=== PATIENT | male | born 1940 | race Caucasian/White ===

== ENCOUNTER 2020-05-22 15:28 | Observation (INO) | payer MEDICARE, OTHER ==
[2020-05-22] MEDS ORDERED: Aspirin Chewable 81 MG TAB ONE (15:42)
[2020-05-22 16:06] LABS: #Eosinphils 0.1 thou/uL (0.0-0.7); #Lymphocytes 1.8 thou/uL (1.20-3.40); #Monocytes 0.6 thou/uL (0.11-0.59); #Neutrophils 4.3 thou/uL (1.40-6.50); %Basophils 0.6 % (0.0-1.0); %Eosinophils 1.1 % (0.0-10.0); %Lymphocytes 26.6 % (21.0-51.0); %Monocytes 8.1 % (0.0-10.0); %Neutrophils 63.6 % (42.0-75.0); Hemoglobin 15.7 g/dL (14.0-18.0); Mean Corpuscular HGB CONC 33.4 g/dL (32.0-36.0); Mean Corpuscular Hemoglobin 29.1 pg (27.0-31.0); Mean Corpuscular Volume 87.4 fL (78.0-98.0); Platelet Count 143 thou/uL (130-400); RBC Distribution Width 12.4 % (11.5-14.5); Red Blood Cell (RBC) Count 5.39 mill/uL (4.70-6.10); White Blood Cell (WBC) Count 6.8 thou/uL (4.8-10.8)
[2020-05-22 16:12] LABS: PTT 25.8 sec (22.9-36.1); Prothrombin Time 12.9 sec (12.0-14.7)
--- NOTE | 2020-05-22 16:13 | CT ---
CT head noncontrast HISTORY: Altered mental status. FINDINGS: There is no evidence of acute intracranial hemorrhage or infarct. The ventricles appear nor mal in size, shape and position. There is no mass effect or shift of midline structures. Visualized paranasal sinuses remain well aerated. IMPRESSION : No abnormalities are demonstrated.
[2020-05-22 16:28] LABS: ALT (SGPT) 18 U/L (8-55); AST (SGOT) 17 U/L (5-34); Albumin 4.2 g/dL (3.4-4.8); Alkaline Phosphatase 90 U/L (40-110); Anion Gap 12 mmol/L (10-20); BUN (Urea Nitrogen) 18 mg/dL (8.4-25.7); Bilirubin, Total 1.1 mg/dL (0.2-1.2); CK (CPK) 40 U/L (30-200); Calc. Creatinine Clearance 0 mL/min (70-130); Carbon Dioxide 25 mmol/L (23-31); Chloride 103 mmol/L (98-107); Estimated GFR-MDRD 70; Globulin 2.6 g/dL (2.4-3.5); Glucose 203 mg/dL (83-110); Potassium 4.1 mmol/L (3.5-5.1); Protein, Total 6.8 g/dL (5.8-8.1); Sodium 136 mmol/L (136-145)
--- NOTE | 2020-05-22 16:32 | RAD ---
XR Chest 1 View Portable HISTORY: Altered mental status, dizziness COMPARISON: None FINDINGS: The heart size is normal. There are changes of median sternotomy. The lungs are well expand ed without focal areas of consolidation, pneumothorax or pleural effusions. IMPRESSION: No radiographic evidence of acute cardiopulmonary process.
[2020-05-22 17:41] LABS: Bilirubin Negative (Negative); Blood, Urine Negative (Negative); Clarity Clear (Clear); Glucose, Urine (Dipstick) Greater than 1000 mg/dL (Negative); Ketone, Urine Negative (Negative); Leukocyte Negative Leu/uL (Negative); Nitrite Negative (Negative); Protein, Urine (Dipstick) Negative (Neg-Trace); Specific Gravity, Urine 1.015 (1.002-1.036); Urobilinogen Normal mg/dL (Less than 2); pH, Urine 5.5 (5.0-9.0)
[2020-05-22] MEDS ORDERED: Labetalol HCl 100 MG/20 ML VIAL ONE (17:41)
[2020-05-22] MEDS ORDERED: Labetalol HCl 100 MG/20 ML VIAL SLOW IVP PRN (20:54)
[2020-05-22] MEDS ORDERED: Dextrose 50% Abboject 50 ML SYRINGE SLOW IVP PRN (21:22)
[2020-05-22] MEDS ORDERED: Dextrose 5% in Water 1,000 ML IV PRN (21:22)
[2020-05-22] MEDS ORDERED: HumaLOG 300 UNITS/3 ML VIAL SC PRN ×2 (21:25)
[2020-05-22] MEDS ORDERED: Ondansetron PF 4 MG/2 ML Vial IVP PRN (21:25)
[2020-05-22] MEDS ORDERED: Ondansetron ODT 4 MG TAB PO PRN (21:25)
[2020-05-22] MEDS ORDERED: hydrALAZINE 20 MG/ML VIAL SLOW IVP PRN (21:25)
[2020-05-22] MEDS ORDERED: Acetaminophen 325 MG TAB PO PRN (21:25)
[2020-05-22 21:49] VITALS: BMI 25.3
--- NOTE | 2020-05-22 22:11 | HP ---
PRIMARY CARE PHYSICIAN: None. CHIEF COMPLAINT: Dizziness. HISTORY OF PRESENT ILLNESS: The patient is a 79-year-old male with a past medical history significant for hyperlipidemia, hypertension, diabetes type 2, which he has not received treatment for in over 4 years. He presents to the ER today for a chief complaint of dizziness. He states that he was walking across the room in his house when he felt dizzy. He felt that the world is spinning around him. His granddaughter called EMS and the dizziness resolved before they arrived to his house. He does state his blood pressure was in the 200 systolically at home. This has happened before, but resolved quicker than today's incident. He also reports that he began to feel unsteady when he was walking and was swaying at times, but he is able to walk himself to the chair without passing out or falling down. He denies any chest pain, abdomen pain, nausea, cough, fever. Does report increased thirst and urination. He has not been on any other medications previously prescribed due to differences with his previous physicians and monetary reasons. Today, in the ER, they performed an EKG, chest x-ray, brain CT, blood work, and urinalysis. PAST MEDICAL HISTORY: Hyperlipidemia, hypertension, diabetes mellitus type 2. PAST SURGICAL HISTORY: CABG x4, stent to his mid LAD. ALLERGIES: NO KNOWN DRUG ALLERGIES. MEDICATIONS: None. 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 Currently does not work. He does not engage in any drugs and no tobacco which he quit in 2008. He does drink red wine occasionally. FAMILY HISTORY: No significant family history per patient. REVIEW OF SYSTEMS: All other review of systems negative unless noted in the HPI. PHYSICAL EXAMINATION: VITAL SIGNS: Blood pressure 127/67, pulse 71, respiratory rate 22, O2 saturation 97% on room air. GENERAL: The patient appears nontoxic and pain-free. HEENT: Head is atraumatic, normocephalic. Eyes, PERRLA. Extraocular muscles intact. NECK: Normal range of motion. Trachea midline. RESPIRATORY: Breath sounds clear to auscultation. No wheezing. No rhonchi. No rales. Symmetric chest rise. CARDIOVASCULAR: Regular rate and rhythm. Holosystolic murmur heard, grade 2/6. No rubs or gallops. ABDOMEN: Nontender. No distention. No guarding. No rebound. EXTREMITIES: Decreased sensation in lower extremities bilaterally. Posterior tibial and pedal pulse normal. NEUROLOGIC: Cranial nerves 2-12 grossly intact. No nystagmus noted. Upper and lower strength 5/5. Cerebellar intact. SKIN: Warm, dry, intact. PSYCHIATRIC: Normal affect. Normal behavior. IMAGING DATA: EKG shows sinus rhythm with right bundle branch block. Heart rate 77. Chest x-ray shows no radiographic evidence of acute cardiopulmonary process. Brain CT shows no abnormalities. White blood cell 6.8, hemoglobin 15.7, hematocrit 47.1, PT 12.9, INR 1.0. Sodium 136, potassium 4.1, creatinine 1.03, GFR 70, glucose 203. Initial troponin 0.012. Urine was negative other than glucose greater than a 1000. IMPRESSION AND PLAN: 1. Dizziness, rule out transient ischemic attack. We have consulted Neurology to come see the patient in the morning. Therefore, a carotid Doppler, echo, fasting lipid, and other blood work to be repeated in the morning. We will continue to monitor patient's blood pressure throughout the evening as he did need p.r.n. antihypertensive downstairs in the ER. He will be watched on telemetry overnight. 2. Hypertension. Continue to monitor patient's blood pressure and treat with antihypertensives as needed. 3. Diabetes. Monitor Accu-Cheks before meals and at bedtime and cover with mild sliding scale insulin. Also have dietitian discuss with patient different education for lifestyle changes. 4. GI prophylaxis has been ordered with Pepcid. DVT prophylaxis with Lovenox ordered. 5. The patient wishes to be a full code. His surrogate decision maker is his , [place]. Patient was discussed with Dr. Mann. Job ID: [id number]
[2020-05-23 05:02] LABS: #Eosinphils 0.1 thou/uL (0.0-0.7); #Lymphocytes 2.1 thou/uL (1.20-3.40); #Monocytes 0.5 thou/uL (0.11-0.59); #Neutrophils 3.3 thou/uL (1.40-6.50); %Basophils 0.4 % (0.0-1.0); %Eosinophils 1.5 % (0.0-10.0); %Lymphocytes 34.7 % (21.0-51.0); %Neutrophils 54.4 % (42.0-75.0); Hemoglobin 14.2 g/dL (14.0-18.0); Mean Corpuscular HGB CONC 32.4 g/dL (32.0-36.0); Mean Corpuscular Hemoglobin 28.8 pg (27.0-31.0); Mean Corpuscular Volume 88.9 fL (78.0-98.0); Mean Platelet Volume 9.5 fL (7.4-10.4); Platelet Count 129 thou/uL (130-400); RBC Distribution Width 12.3 % (11.5-14.5); Red Blood Cell (RBC) Count 4.91 mill/uL (4.70-6.10)
[2020-05-23 05:09] LABS: Hemoglobin A1c 9.8 % (4.0-6.0)
[2020-05-23 05:33] LABS: Anion Gap 12 mmol/L (10-20); BUN (Urea Nitrogen) 14 mg/dL (8.4-25.7); Calc. Creatinine Clearance 74 mL/min (70-130); Calcium 8.7 mg/dL (7.8-10.44); Carbon Dioxide 23 mmol/L (23-31); Cardiac Risk 6.4 (Less than 4.5); Chloride 104 mmol/L (98-107); Cholesterol 186 mg/dl (< 200 Desired); Estimated GFR-MDRD 71; Glucose 329 mg/dL (83-110); HDL Cholesterol 29 mg/dL (>60 Neg Risk); LDL Cholesterol, Calculated 117 mg/dL; Potassium 4.1 mmol/L (3.5-5.1); Sodium 135 mmol/L (136-145); Triglycerides 199 mg/dL (Less than 150)
--- NOTE | 2020-05-23 07:58 | ULT ---
Carotid duplex sonogram HISTORY: Vascular disease. Dizziness. FINDINGS: Right: Scattered areas of plaque. Color and spectral Doppler evaluation, peak systolic velocity of 11 0 cm/s, and IC to CC ratio of 1.4 suggest no hemodynamically significant stenosis within the extracranial right ICA. Elevated velocity at the origin of the external carotid artery is measured at 238 cm/s. Antegrade flow within the vertebral artery. Left: Scattered areas of plaque. Color and spectral Doppler evaluation, peak systolic velocity of 96 cm/s, and IC to CC ratio of 1.5 suggest no hemodynamically significant stenosis within the extra cranial left ICA. Antegrade flow within the vertebral artery. IMPRESSION : Atherosclerosis. No sonographic evidence of significant extracranial ICA stenosis. Incidental note of Elevated velocity within the right external carotid artery suggestive of stenosis.
--- NOTE | 2020-05-23 08:55 | MRI ---
Exam: Brain MRI without contrast HISTORY: Transient ischemic attack COMPARISON: None FINDINGS: Calvarial marrow signal intensity: Appropriate T1 signal Gradient echo sequence: No hemorrhage Brain parenchyma: No mass, mass effect or midline shift. Brain volume, age-appropriate. Cortical house-white matter differentiation: Preserved Restricted diffusion: Central arterial flow voids are maintained. Absent restricted diffusion White matter signal intensities:Minimal T2, FLAIR white matter hyperintensities due to chronic small vessel ischemic changes Sinuses: Adequate aeration of the paranasal sinuses and mastoid air cells. IMPRESSION: 1. Absent restricted diffusion. No acute infarct. 2. Age-appropriate atrophy. Minimal chronic small vessel ischemic changes of the white matter.
[2020-05-23] MEDS ORDERED: Aspirin 81 mg Enteric Coated Tablet PO SCH (09:00)
[2020-05-23] MEDS ORDERED: Enoxaparin Sodium 40 MG/0.4 ML SYRINGE SC SCH (09:00)
[2020-05-23] MEDS ORDERED: Famotidine 20 MG TAB PO SCH (09:00)
--- NOTE | 2020-05-23 10:18 | PDOC.HOSPP ---
- Objective Vital Signs & Weight: Vital Signs (12 hours) Temp Pulse Resp BP BP Pulse Ox 05/23/20 07:41 97.3 F L 72 20 165/81 H 97 05/23/20 03:54 97.5 F L 64 20 130/68 96 05/23/20 00:00 97.7 F 66 20 109/56 L 98 Weight Weight 192 lb 3.2 oz Result Diagrams: 05/23/20 04:29 05/23/20 04:29 Additional Labs: Accuchecks 05/23/20 05/23/20 06:03 00:23 POC Glucose 282 H 192 H Hospitalist ROS - Medication Medications: Active Medications Generic Name Dose Route Start Last Admin Trade Name Freq PRN Reason Stop Dose Admin Aspirin 81 mg 05/23/20 09:00 05/23/20 08:23 Ecotrin PO Not Given DAILY [facility] Enoxaparin Sodium 40 mg 05/23/20 09:00 05/23/20 08:23 Lovenox SC Not Given 0900 [facility] Famotidine 20 mg 05/23/20 09:00 05/23/20 08:23 Pepcid PO Not Given BID [facility] Insulin Human Lispro 0 units 05/22/20 21:25 05/23/20 06:11 Humalog SC 4 unit .MILD SLIDING SCALE PRN Administration Mild Correctional Scale
[2020-05-23] MEDS: HumuLIN 70/30 (300 UNITS/3 ML VIAL) SC SCH ×2 (11:23→12:56)
[2020-05-23 11:42] VITALS: TEMP 97.8
[2020-05-23 11:48] LABS: SARS-CoV-2 MS2 Positive; SARS-CoV-2 N Gene Negative; SARS-CoV-2 S Gene Negative; SARS-CoV-2 by NAA Not Detected (NotDetected); SARS-CoV-2 orf1ab Negative
[2020-05-23] MEDS ORDERED: Sodium Chloride 0.9% 1,000 ML IV SCH (12:15)
--- NOTE | 2020-05-23 12:37 | CON ---
NEUROLOGY CONSULTATION DATE OF CONSULTATION: 05/23/2020 REASON FOR CONSULTATION: TIA/spell of dizziness. HISTORY OF PRESENT ILLNESS: Mr. Thiago Valentin is a 79-year-old male with history significant for hypertension, hyperlipidemia, diabetes mellitus type 2, presented to the emergency room with complaint of dizziness with confusion. Per patient, he was at his relative's house to see his grandchildren and at that time, he felt as if the room is spinning in front of his eyes and he became extremely dizzy. At that time, they checked his blood pressure and it was 200 systolic. He keeps on feeling dizzy, but denies any focal weakness, focal paresthesias, nausea, vomiting, headache, chest pain, abdominal pain, cough, or recent illness associated with the episode. Per the patient, he has been having these dizzy spells at home and he never consulted a doctor. He does not take any medicines for his medical problems and control it with diet and exercise. Per the patient, since the symptoms persisted, the relatives decided to bring him to the hospital for further evaluation. In the emergency room, head CT was done, which was negative for acute intracranial pathology. EKG and chest x-ray were also unremarkable. Hemoglobin A1c was greater than 9. REVIEW OF SYSTEMS: All 10 systems were reviewed and were negative except the pertinent positives and negatives mentioned in the HPI. PAST MEDICAL HISTORY: Hypertension, hyperlipidemia, type 2 diabetes. PAST SURGICAL HISTORY: CABG x4, status post stent to the LAD. ALLERGIES: NO KNOWN DRUG ALLERGIES. MEDICATIONS: The patient does not take any medications at home. SOCIAL HISTORY: , lives with his . Denies smoking. Denies illegal drug use. Drinks red wine occasionally and quit smoking in 2008. FAMILY HISTORY: No family history of significant medical problems per the patient. - Objective Vital Signs & Weight: Vital Signs (12 hours) Temp Pulse Resp BP BP Pulse Ox 05/23/20 07:41 97.3 F L 72 20 165/81 H 97 05/23/20 03:54 97.5 F L 64 20 130/68 96 05/23/20 00:00 97.7 F 66 20 109/56 L 98 Weight Weight 192 lb 3.2 oz Additional Labs: Accuchecks 05/23/20 05/23/20 06:03 00:23 POC Glucose 282 H 192 H Active Medications Generic Name Dose Route Start Last Admin Trade Name Freq PRN Reason Stop Dose Admin Aspirin 81 mg 05/23/20 09:00 05/23/20 08:23 Ecotrin PO Not Given DAILY [facility] Enoxaparin Sodium 40 mg 05/23/20 09:00 05/23/20 08:23 Lovenox SC Not Given 0900 [facility] Famotidine 20 mg 05/23/20 09:00 05/23/20 08:23 Pepcid PO Not Given BID [facility] Insulin Human Lispro 0 units 05/22/20 21:25 05/23/20 06:11 Humalog SC 4 unit .MILD SLIDING SCALE PRN Administration Mild Correctional Scale PHYSICAL EXAMINATION: CARDIOVASCULAR SYSTEM: Regular rate and rhythm. CHEST: Clear. ABDOMEN: Soft. NECK: Supple. NEUROLOGIC: Mental status: The patient is alert and oriented to person, place , and time. Fund of knowledge is intact. Speech is clear. Recent and remote memory intact. Cranial nerves 2 through 12 intact. Motor: Muscle tone and bulk are normal. Strength is 5/5 bilaterally. Cerebellar: Finger-nose testing intact. Sensory: Intact. Gait: Deferred due to the patient's safety reasons. DATA REVIEWED: I reviewed the EKG, which shows right bundle-branch block. We also reviewed the head CT, which was negative for acute intracranial pathology. MRI of the brain reviewed, which was negative for acute intracranial pathology. EEG reviewed and was negative for seizure activity. ASSESSMENT AND PLAN: Mr. Thiago Valentin is a 79-year-old male with a history significant for hypertension, hyperlipidemia, and type 2 diabetes. The patient does not take any medicines at home. He presented with an episode of dizziness. The differential diagnosis includes posterior circulation TIA. Seizure seems less on the differential, however, cannot be ruled out because of history of some altered mental status with the episode. Fluctuation in blood pressure can also play a role. MRI of the brain reviewed, which was negative for acute intracranial pathology. EEG reviewed, which was negative for seizure activity. Carotid Dopplers did not reveal hemodynamically significant stenosis. Telemetry. Neuro checks every 4 hours. Hemoglobin A1c elevated. The patient does not want to take any medicine and wants to control it by diet. Recommend aspirin and statin for secondary stroke prevention. Strict control of blood glucose and blood pressure. Check orthostatics and continue medical management per primary team. The plan was discussed with the patient and the primary attending, Dr. Aguilar. Job ID: [id number] [email or web address]
[2020-05-23 15:59] VITALS: BP 176/87
[2020-05-23] MEDS ORDERED: Clopidogrel Bisulfate 75 MG TAB ONE (17:09)
--- NOTE | 2020-05-23 17:18 | EEG ---
DATE OF SERVICE: 05/23/2020 ATTENDING PHYSICIAN: Alva Bishop MD. This EEG was performed using 24-channel [employer]ek video digital EEG machine with 24-disk electrodes. This was an extended 2-hour 5-minute of inpatient video EEG recording. Digital analysis of the EEG was done for spike and seizure detection, which revealed no abnormalities. BACKGROUND: The posterior background rhythm is 9 to 10 Hz. The background rhythm attenuates with eye opening and enhances with eye closure. HYPERVENTILATION: Not performed. PHOTIC STIMULATION: No significant response seen with photic stimulation seen. SLEEP: Drowsiness is observed. EEG DIAGNOSIS: Normal awake and drowsy EEG. Job ID: [id number]
[2020-05-23] MEDS ORDERED: HumuLIN 70/30 (300 UNITS/3 ML VIAL) SC SCH (21:00)
[2020-05-23] MEDS ORDERED: Atorvastatin Calcium 40 MG TAB PO SCH (21:00)
[2020-05-23] MEDS ORDERED: Prevnar 13-Val Conj/PF 0.5 ML SYRINGE IM ONE (21:00)
--- NOTE | 2020-05-24 02:56 | DIS ---
DATE OF ADMISSION: 05/22/2020 DATE OF DISCHARGE: 05/23/2020 HOSPITAL COURSE: Mr. Valentin is a 79-year-old male with a medical history of hypertension; type 2 diabetes; and coronary artery disease, status post CABG, who presented with chronic dizziness. He was diagnosed with poorly controlled diabetes due to medication nonadherence, resulting in polyuria and dehydration, resulting in orthostatic hypotension. The patient was supplemented with IV fluids and orthostatic hypotension resolved. The patient was extensively educated regarding his poorly controlled diabetes, which he denied having, and was educated regarding the importance of better controlling his diabetes association with his symptoms and the importance of establishing care and following up with his primary care physician. He was started on insulin regimen of Humulin 70/30, because he does not have insurance based on his weight, coronary artery disease, and antihypertensive medication. On the day of discharge, he was hemodynamically stable with no presyncopal episodes. PHYSICAL EXAMINATION: VITAL SIGNS: Blood pressure supine 133/72, sitting 132/66, and standing 146/74; pulse 60; respiratory rate 18; oxygen saturation 99% on room air; temperature 97.8. GENERAL: Lying comfortably in bed. Awake and alert. HEENT: Normocephalic, atraumatic. EOMI. PERRL. CARDIOTHORACIC: Regular rate and rhythm. No gallops, murmurs, or rubs. LUNG: Clear to auscultation bilaterally. No wheezing, rales, or rhonchi. ABDOMEN: Soft, nontender, nondistended. Normal bowel sounds. EXTREMITIES: Strength 5/5 throughout upper and lower extremities. No edema. PSYCHIATRIC: Proper mood and affect. Alert and oriented x3. MEDICATION LIST: There were no old medications because the patient was nonadherent. New medications: 1. Aspirin 81 mg p.o. daily. 2. Atorvastatin 80 mg q.h.s. 3. Blood glucose kit. 4. Humulin 70/30, 20 units subcutaneously b.i.d. 5. Lisinopril 10 mg p.o. daily. 6. Metoprolol tartrate 25 mg p.o. b.i.d. The patient was scheduled with a primary care physician within 3 days of discharge. He was provided with written educational materials regarding his diabetes and orthostatic hypotension and received diabetic education regarding injections and management of diabetes. Job ID: [id number]
== END 2020-05-23 17:26 | disposition home or self-care (01) ==
LOC: ERS 15:28 → 2SE 18:37
PROVIDERS: ADMIT Internal Medicine; ATTEND Internal Medicine
DX: I95.1 Orthostatic hypotension (principal); I10 Essential (primary) hypertension; I25.10 Atherosclerotic heart disease of native coronary artery without angina pectoris; E11.9 Type 2 diabetes mellitus without complications; Z87.891 Personal history of nicotine dependence; Z91.14 Patient's other noncompliance with medication regimen; Z95.1 Presence of aortocoronary bypass graft; Z11.59 Encounter for screening for other viral diseases; Z20.828 Contact with and (suspected) exposure to other viral communicable diseases
CPT/HCPCS: 70450; 70551; 71045; 80048; 80053; 80061; 81003; 82550; 82962; 83036; 84484; 85025 ×2; 85610; 85730; 93005; 93306; 93880; 95712; 95816; 95819; 95957; 96361; 96374; 99285; G0378 ×3; U0003; 36415; 36416; 87635; J1815